=== PATIENT | female | born 1975 | race Caucasian/White ===

== ENCOUNTER 2016-08-31 19:17 | Emergency (ER) | payer MEDICARE, OTHER ==
[~2016-08-31] VITALS: Ht 160 cm; Wt 74.9 kg
[~2016-08-31 19:17] MED LIST: AMBI10TA PO; BUPR150T3 PO; LORA-474 PO; METH10TA PO; NEUR800T PO; PREV30CA36 PO; PROT40TA PO
[2016-08-31 19:47] VITALS: BP 111/75; PULSE 106; RESP 16; TEMP 98.9; O2SAT 96
[2016-08-31] MEDS ORDERED: IBUP800T23 PO (20:26)
[2016-08-31] MEDS ORDERED: SUBO8MIS SL (20:26)
--- NOTE | 2016-08-31 21:39 | PD ---
HPI Chief Complaint: Injury Time Seen by Provider: 21:00 Travel History International Travel<30 days: No Contact w/Intl Traveler<30days: No Traveled to known affect area: No History of Present Illness HPI 40-year-old female presents to the emergency room for evaluation of left for the past several hours. Patient states she jumped over a fence and landed on her knees. She reports hyper extending her knee. Pain is localized to the lateral aspect and posterior knee. Radiates down the leg and up into her thigh. Worsened with full extension and ambulation. She took ibuprofen and applied ice prior to arrival. Denies paresthesias. Patient states "I know it is not broken." She was states it feels unstable when she takes a step. PFSH Past Medical History Blood Disorders: No Cancer: No Cardiovascular Problems: No Chemotherapy: No Diabetes: No Diminished Hearing: No Endocrine: No Genitourinary: No Headaches: Yes Immune Disorder: No Musculoskeletal: Yes (RIGHT ARM AMPUTATED) Psychiatric: No Reproductive: No Respiratory: Yes (s/p r pneumothorax ,l pulmonary effusion) Radiation Therapy: No Ulcer: Yes Tetanus Vaccination: Unknown Influenza Vaccination: No ?: Not Past Surgical History AICD: No Arteriovenous Shunt: No Insulin Pump: No Joint Replacement: No Neurologic Surgery: Yes Pacemaker: No Other Surgery: Yes (RIGHT ARM AMPUTATION) Social History Alcohol Use: Yes (MIXED DRINK TWICE WEEKLY) Tobacco Use: Yes (1/2 PPD) Substance Use: No (DENIES) Allergies-Medications (Allergen,Severity, Reaction): Coded Allergies: Clindamycin (Verified Allergy, Severe, vomiting, 08/31/16) Erythromycin (Verified Allergy, Severe, UPSET STOMACH, 08/31/16) Sulfa (Verified Allergy, Severe, STOMACH UPSET, 08/31/16) Vancomycin (Verified Allergy, Severe, GETS HIVES GETS PRE OP BENADRYL, 08/31) Reported Meds & Prescriptions Reported Meds & Active Scripts Active Reported Ibuprofen 800 Mg Tab 800 Mg PO Q8H PRN Suboxone Sublingual Film (Buprenorphine-Naloxone Sublingual Film) 8-2 Mg Film 1 Film SL DAILY Unique ID number required: Review of Systems Except as stated in HPI: all other systems reviewed are Neg Physical Exam Narrative GENERAL: Well-nourished, well-developed female in no acute distress. Afebrile. SKIN: Warm and dry. No erythema or ecchymosis. HEAD: Normocephalic. EYES: No scleral icterus. No injection or drainage. NECK: Supple, trachea midline. No JVD or lymphadenopathy. EXTREMITY: Left knee tenderness to palpation over the lateral and posterior aspects. Full range of motion in all joints. No obvious edema or effusion. 2+ dorsalis pedis pulse. No pain or instability with valgus or varus stress test. Data Data Last Documented VS Vital Signs Date Time Temp Pulse Resp B/P Pulse Ox O2 Delivery O2 Flow Rate FiO2 08/31/16 19:47 98.9 106 16 111/75 96 Room Air Orders Splint Or Brace Apply/Monitor (08/31/16 21:25) Crutches (08/31/16 21:25) MDM Medical Decision Making Medical Screen Exam Complete: Yes Emergency Medical Condition: Yes Medical Record Reviewed: Yes Differential Diagnosis Sprain versus fracture versus strain Narrative Course 40-year-old female presents to the emergency room for evaluation of left knee pain after injury just prior to arrival. Patient jumped from a fence and landed with her knee hyperextended. She has been too afraid to apply weight since then. Reports pain localized to the lateral and posterior aspects. No paresthesias. Left lower extremity is neurovascularly intact. She has full range motion of the knee with no significant bony tenderness. Patient took several steps in the emergency room with mild difficulty. She is offered x-ray multiple times but declined stating she knows that it is not broken. Patient was informed that she may need an outpatient MRI to assess for instability and to follow up with a primary care physician for the order. She was offered knee immobilizer but preferred Manuel wrap. Discharged with Manuel wrap and crutches and told to follow up or return for worsening symptoms. She understands and agrees to this plan. Diagnosis Primary Impression: Left knee pain Qualified Code: M25.562 - Acute pain of left knee Referrals: Primary Care Physician Patient Instructions: General Instructions, Knee Pain (ED) Additional Instructions: Rest and drink plenty of fluids. Use crutches and splint as needed. Take ibuprofen with food as directed, as needed for pain. Elevate and apply ice to the affected area for 20 minutes at a time, as needed for pain and swelling. Follow-up with a primary care physician. Return to the emergency room for worsening symptoms. Disposition: DISCHARGE HOME Condition: Stable Amy Romero Aug 31, 2016 21:39
== END 2016-08-31 22:20 | disposition home or self-care (01) ==
LOC: PHEFT 19:17
DX: M25.562 Pain in left knee (principal); F17.210 Nicotine dependence, cigarettes, uncomplicated; J90 Pleural effusion, not elsewhere classified; X58.XXXA Exposure to other specified factors, initial encounter; Y93.39 Activity, other involving climbing, rappelling and jumping off
CPT/HCPCS: 99283; E0113; L1830

== ENCOUNTER 2017-12-26 12:21 | Observation (INO) | payer OTHER ==
[2017-12-26] MEDS ORDERED: CLINDAMYCIN PHOS 600 MG/4 ML VIAL IV (13:30)
[2017-12-26] MEDS: ACETAMINOPHEN/HYDROcodone 325 MG/5 MG TAB PO (13:46)
[2017-12-26] MEDS ORDERED: CLINDAMYCIN 600 MG/NS PREMIX 50 ML IV (14:00)
[2017-12-26 14:04] LABS: CHLORIDE 103 MEQ/L (98-107); POTASSIUM 4.3 MEQ/L (3.5-5.1); SODIUM (NA) 138 MEQ/L (136-145)
[2017-12-26 14:06] LABS: AUTOMATED NEUTROPHIL # 5.2 TH/MM3 (1.8-7.7); BASOPHIL # 0.1 TH/MM3 (0-0.2); BASOPHIL % 0.7 % (0.0-2.0); EOSINOPHIL # 0.3 TH/MM3 (0-0.4); EOSINOPHIL % 3.9 % (0.0-4.0); HEMATOCRIT 34.6 % (35.0-46.0); HEMO FLAGS DIFF FINAL; HEMOGLOBIN 11.7 GM/DL (11.6-15.3); LYMPH % 22.2 % (9.0-44.0); LYMPHOCYTE # 1.8 TH/MM3 (1.0-4.8); MEAN CELL VOLUME 91.9 FL (80.0-100.0); MEAN CORPUSCULAR HEMOGLOBIN 31.1 PG (27.0-34.0); MEAN CORPUSCULAR HGB CONC 33.8 % (32.0-36.0); MEAN PLATELET VOLUME 7.6 FL (7.0-11.0); MONOCYTE # 0.7 TH/MM3 (0-0.9); NEUT % 64.2 % (16.0-70.0); PLATELET COUNT 337 TH/MM3 (150-450); RED BLOOD COUNT 3.77 MIL/MM3 (4.00-5.30); RED CELL DISTRIBUTION WIDTH 11.9 % (11.6-17.2); WHITE BLOOD COUNT 8.1 TH/MM3 (4.0-11.0)
[2017-12-26 14:08] LABS: ANION GAP 5 MEQ/L (5-15); BICARBONATE 30.5 MEQ/L (21.0-32.0); BLOOD UREA NITROGEN 13 MG/DL (7-18); CALCIUM 9.5 MG/DL (8.5-10.1); GLUCOSE,RANDOM 109 MG/DL (74-106)
[2017-12-26 14:12] LABS: CREATININE 0.53 MG/DL (0.50-1.00); GLOMERULAR FILTRATION RATE 126 ML/MIN (>89)
[2017-12-26] MEDS: CLINDAMYCIN 600 MG/NS PREMIX 50 ML IV (14:17)
[2017-12-26] MEDS: IOHEXOL 350 MG/ML 10 ML VIAL (for RAD DIAG) IVCONTRAST (15:04)
[2017-12-26] MEDS: GADODIAMIDE PF 287 MG/ML 5 ML VIAL (for RAD MRI) IVCONTRAST (16:44)
[2017-12-26] MEDS ORDERED: ACETAMINOPHEN/HYDROcodone 325 MG/10 MG TAB PO (18:45)
[2017-12-26] MEDS ORDERED: ACETAMINOPHEN/HYDROcodone 325 MG/5 MG TAB PO (18:45)
[2017-12-26] MEDS ORDERED: Vancomycin Consult Pharmacy 1 EA OTHER (19:00)
[2017-12-26] MEDS ORDERED: BISACODYL 10 MG SUPP RECTAL (19:15)
[2017-12-26] MEDS ORDERED: MAGNESIUM HYDROXIDE SUSP 30 ML CUP PO (19:15)
[2017-12-26] MEDS ORDERED: SENNOSIDES 8.6 MG TAB PO (19:15)
[2017-12-26] MEDS ORDERED: LACTULOSE SYRUP 20 GM/30 ML CUP PO (19:15)
[2017-12-26] MEDS ORDERED: TEMAZEPAM 15 MG CAP PO (19:15)
[2017-12-26] MEDS ORDERED: NALOXONE HCL 0.4 MG/ML AMP IV PUSH (19:15)
[2017-12-26] MEDS ORDERED: ACETAMINOPHEN 325 MG TAB PO (19:15)
[2017-12-26] MEDS ORDERED: ONDANSETRON HCL 4 MG/2 ML VIAL IVP (19:15)
[2017-12-26] MEDS: GABAPENTIN 300 MG CAP PO (19:54)
[2017-12-26] MEDS: DOCUSATE SODIUM 50 MG/SENNA 8.6 MG TAB PO (19:55)
[2017-12-26] MEDS: SODIUM CHLORIDE 0.9% FLUSH 10 ML FLUSH IV FLUSH (19:56)
[2017-12-26] MEDS: ACETAMINOPHEN/HYDROcodone 325 MG/10 MG TAB PO (19:56)
[2017-12-26] MEDS: VANCOMYCIN INJ 1,000 MG in SODIUM CHLOR 0.9% 250 ML INJ 250 ML IV (22:13)
[2017-12-27] MEDS: ACETAMINOPHEN/HYDROcodone 325 MG/10 MG TAB PO ×5 (03:17→21:45)
[2017-12-27 06:52] LABS: CHLORIDE 104 MEQ/L (98-107); POTASSIUM 4.2 MEQ/L (3.5-5.1); SODIUM (NA) 137 MEQ/L (136-145)
[2017-12-27 06:56] LABS: CALCIUM 8.8 MG/DL (8.5-10.1)
[2017-12-27 06:57] LABS: ALBUMIN 2.9 GM/DL (3.4-5.0); ANION GAP 3 MEQ/L (5-15); BASOPHIL # 0.1 TH/MM3 (0-0.2); BASOPHIL % 0.9 % (0.0-2.0); BICARBONATE 30.5 MEQ/L (21.0-32.0); BLOOD UREA NITROGEN 7 MG/DL (7-18); EOSINOPHIL # 0.3 TH/MM3 (0-0.4); EOSINOPHIL % 3.1 % (0.0-4.0); GLUCOSE,RANDOM 110 MG/DL (74-106); HEMATOCRIT 34.7 % (35.0-46.0); HEMO FLAGS DIFF FINAL; HEMOGLOBIN 11.7 GM/DL (11.6-15.3); LYMPH % 17.4 % (9.0-44.0); LYMPHOCYTE # 1.5 TH/MM3 (1.0-4.8); MEAN CELL VOLUME 92.1 FL (80.0-100.0); MEAN CORPUSCULAR HEMOGLOBIN 31.2 PG (27.0-34.0); MEAN CORPUSCULAR HGB CONC 33.8 % (32.0-36.0); MEAN PLATELET VOLUME 7.8 FL (7.0-11.0); MONO % 6.8 % (0.0-8.0); MONOCYTE # 0.6 TH/MM3 (0-0.9); NEUT % 71.8 % (16.0-70.0); PLATELET COUNT 323 TH/MM3 (150-450); RED BLOOD COUNT 3.77 MIL/MM3 (4.00-5.30); RED CELL DISTRIBUTION WIDTH 11.6 % (11.6-17.2); WHITE BLOOD COUNT 8.5 TH/MM3 (4.0-11.0)
[2017-12-27 07:00] LABS: ALT (GPT) 31 U/L (10-53)
[2017-12-27 07:01] LABS: AST (GOT) 18 U/L (15-37); CREATININE 0.43 MG/DL (0.50-1.00); GLOMERULAR FILTRATION RATE 160 ML/MIN (>89); TOTAL BILIRUBIN ADULT 0.3 MG/DL (0.2-1.0); TOTAL PROTEIN 7.2 GM/DL (6.4-8.2)
[2017-12-27 07:02] LABS: ALKALINE PHOSPHATASE 50 U/L (45-117)
[2017-12-27] MEDS: GABAPENTIN 300 MG CAP PO ×3 (08:30→17:05)
[2017-12-27] MEDS: SODIUM CHLORIDE 0.9% FLUSH 10 ML FLUSH IV FLUSH ×2 (09:00→19:39)
[2017-12-27] MEDS ORDERED: GABAPENTIN 300 MG CAP PO (09:00)
[2017-12-27] MEDS: DOCUSATE SODIUM 50 MG/SENNA 8.6 MG TAB PO ×2 (09:00→19:39)
[2017-12-27 10:24] LABS: C-REACTIVE PROTEIN 3.12 MG/DL (0.00-0.30)
[2017-12-27 10:26] LABS: WESTERGREN SEDIMENTATION RATE 1 mm/hr (0-20)
[2017-12-27] MEDS: VANCOMYCIN INJ 1,000 MG in SODIUM CHLOR 0.9% 250 ML INJ 250 ML IV ×2 (11:18→21:32)
[2017-12-27] MEDS: PNEUMOCOCCAL POLYVALENT INJ 25 MCG/0.5 ML SYR IM (11:20)
[2017-12-27] MEDS: AMPICILLIN-SULBACTAM INJ 3 GM in SODIUM CHLORIDE 0.9% INJ 100 ML IV ×2 (11:21→17:06)
[2017-12-27] MEDS: FLUCONAZOLE 200 MG TAB PO (12:31)
[2017-12-28] MEDS: AMPICILLIN-SULBACTAM INJ 3 GM in SODIUM CHLORIDE 0.9% INJ 100 ML IV ×4 (00:20→17:27)
[2017-12-28] MEDS: ACETAMINOPHEN/HYDROcodone 325 MG/10 MG TAB PO ×3 (03:43→17:26)
[2017-12-28] MEDS: NEOMYCIN/POLYMYXIN 1 ML G.U. IRRIGANT (07:38)
[2017-12-28] MEDS ORDERED: fentaNYL CITRATE 250 MCG/5 ML AMP (07:46)
[2017-12-28] MEDS ORDERED: SODIUM CHLORID 0.9% 500 ML IV (08:00)
[2017-12-28] MEDS ORDERED: POVIDONE IODINE 5% (ANTISEPSIS KIT) 4 APPLICATIONS EACH NARE (08:00)
[2017-12-28] MEDS ORDERED: METOPROLOL TARTRATE 25 MG TAB PO (08:00)
[2017-12-28] MEDS ORDERED: CHLORHEXIDINE GLUCONATE 2 % 1 PACK (2 CLOTHS) TOPICAL (08:00)
[2017-12-28] MEDS ORDERED: LACTATED RINGER'S 1000 ML IV (08:00)
[2017-12-28] MEDS ORDERED: INSULIN HUMAN REGULAR 1,000 UNITS/10 ML VIAL SQ (08:00)
[2017-12-28] MEDS: LIDOCAINE HCL 2% 50 ML VIAL (08:38)
[2017-12-28] MEDS ORDERED: PHARMACY ORDERED LAB (08:45)
[2017-12-28] MEDS: BACITRACIN TOP OINT 15 GM TUBE (09:09)
[2017-12-28] MEDS: PHARMACY ORDERED LAB (10:45)
[2017-12-28] MEDS: FLUCONAZOLE 200 MG TAB PO (10:59)
[2017-12-28] MEDS: SODIUM CHLORIDE 0.9% FLUSH 10 ML FLUSH IV FLUSH ×2 (11:00→19:59)
[2017-12-28] MEDS: GABAPENTIN 300 MG CAP PO ×3 (11:00→17:26)
[2017-12-28] MEDS: DOCUSATE SODIUM 50 MG/SENNA 8.6 MG TAB PO ×2 (11:01→19:59)
[2017-12-28] MEDS: VANCOMYCIN INJ 1,000 MG in SODIUM CHLOR 0.9% 250 ML INJ 250 ML IV (11:39)
[2017-12-28 14:26] LABS: VANCOMYCIN TROUGH 2.9 MCG/ML (5.0-10.0)
[2017-12-28] MEDS: VANCOMYCIN INJ 1,250 MG in SODIUM CHLOR 0.9% 250 ML INJ 250 ML IV (19:59)
[2017-12-29] MEDS: AMPICILLIN-SULBACTAM INJ 3 GM in SODIUM CHLORIDE 0.9% INJ 100 ML IV ×2 (00:07→05:54)
[2017-12-29] MEDS: ACETAMINOPHEN/HYDROcodone 325 MG/10 MG TAB PO ×5 (00:12→21:22)
[2017-12-29] MEDS: SODIUM CHLORIDE 0.9% FLUSH 10 ML FLUSH IV FLUSH ×3 (05:55→21:23)
[2017-12-29] MEDS: VANCOMYCIN INJ 1,250 MG in SODIUM CHLOR 0.9% 250 ML INJ 250 ML IV (07:24)
[2017-12-29] MEDS: GABAPENTIN 300 MG CAP PO ×3 (07:24→17:34)
[2017-12-29] MEDS: DOCUSATE SODIUM 50 MG/SENNA 8.6 MG TAB PO ×2 (07:24→21:23)
[2017-12-29] MEDS: FLUCONAZOLE 200 MG TAB PO (07:25)
[2017-12-29] MEDS: LEVOFLOXACIN 500 MG TAB PO (08:29)
[2017-12-29] MEDS: LINEZOLID 600 MG TAB PO (21:23)
[2017-12-30] MEDS: ACETAMINOPHEN/HYDROcodone 325 MG/10 MG TAB PO ×3 (05:38→19:37)
[2017-12-30] MEDS: SODIUM CHLORIDE 0.9% FLUSH 10 ML FLUSH IV FLUSH (09:22)
[2017-12-30] MEDS: LINEZOLID 600 MG TAB PO ×2 (09:22→19:36)
[2017-12-30] MEDS: GABAPENTIN 300 MG CAP PO ×3 (09:22→18:18)
[2017-12-30] MEDS: DOCUSATE SODIUM 50 MG/SENNA 8.6 MG TAB PO (09:22)
[2017-12-30] MEDS: LEVOFLOXACIN 500 MG TAB PO (09:22)
[2017-12-30 09:58] LABS: CREATININE 0.54 MG/DL (0.50-1.00); GLOMERULAR FILTRATION RATE 123 ML/MIN (>89)
[2017-12-30] MEDS: ACETAMINOPHEN/HYDROcodone 325 MG/5 MG TAB PO (13:53)
== END 2017-12-30 19:51 | disposition home or self-care (01) ==
LOC: PHED 12:21 → PHEDA 16:43 → PH3A 17:55
DX: L02.512 Cutaneous abscess of left hand (principal); L03.114 Cellulitis of left upper limb; L03.012 Cellulitis of left finger; B95.62 Methicillin resistant Staphylococcus aureus infection as the cause of diseases classified elsewhere; M86.142 Other acute osteomyelitis, left hand; G89.29 Other chronic pain; F43.10 Post-traumatic stress disorder, unspecified; F17.210 Nicotine dependence, cigarettes, uncomplicated; Z23 Encounter for immunization; Z87.11 Personal history of peptic ulcer disease; Z88.1 Allergy status to other antibiotic agents
CPT/HCPCS: 00400; 73130; 73201; 73220; 76937; 80048; 80053; 80202; 82565; 85025; 85652; 86140; 86403; 87015; 87040; 87070; 87102; 87116; 87147; 87186; 87205; 87206; 88305; 88307; 88311; 90471; 90732; 93005; 96365; 96366; 96367; 96376; 97110-GO; 97166-GO; 97535-GO; 99285-25